=== PATIENT | female | born 1975 | race Caucasian/White ===

== ENCOUNTER 2017-11-12 13:29 | Emergency (ER) | payer BC ==
[2017-11-12] MEDS ORDERED: HYDROMORPHONE HCL 1 MG/ML SYRINGE IM ONE (14:24)
[2017-11-12] MEDS ORDERED: PROMETHAZINE HCL 25 MG/ML VIAL IM ONE (14:24)
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
--- NOTE | 2017-11-13 17:57 | RADIOLOGY REPORT ---
EXAM: WRIST, LEFT 3 VIEWS HISTORY: INJURY. TECHNIQUE: Three views of the left wrist. COMPARISON: Left hand from 04/10/15. ENCOUNTER: Initial. FINDINGS: There is a comminuted mildly displaced intraarticular fracture deformity of the distal radial metaphysis. Posterior displacement and angulation of the distal fracture fragments. There is associated soft tissue swelling. No dislocation. IMPRESSION: COMMINUTED AND MILDLY DISPLACED/ANGULATED DISTAL RADIAL METAPHYSEAL FRACTURE. JOB NUMBER: [id number] MTDD
== END 2017-11-12 15:40 | disposition home or self-care (01) ==
LOC: ER 13:29
DX: S52.532A Colles' fracture of left radius, initial encounter for closed fracture (principal); W00.0XXA Fall on same level due to ice and snow, initial encounter; Y92.481 Parking lot as the place of occurrence of the external cause
CPT/HCPCS: 29125; 99283; 96372; 99284; 73110; J1170; J2550